=== PATIENT | female | born 1985 | race Caucasian/White ===

== ENCOUNTER 2017-10-20 11:12 | Outpatient (CLI) | payer OTHER ==
[2017-10-20] MEDS: LR 1,000 ML IV ×2 (13:10→13:20)
== END 2017-10-20 14:10 | disposition home or self-care (01) ==
LOC: M LDO 11:12
DX: O26.893 Other specified pregnancy related conditions, third trimester (principal); Z3A.39 39 weeks gestation of pregnancy; E86.0 Dehydration; O99.213 Obesity complicating pregnancy, third trimester; E66.9 Obesity, unspecified; M79.7 Fibromyalgia; N80.9 Endometriosis, unspecified; O99.283 Endocrine, nutritional and metabolic diseases complicating pregnancy, third trimester
CPT/HCPCS: 76815

== ENCOUNTER 2017-10-27 11:07 | Inpatient (IN) | payer OTHER ==
[2017-10-27 13:22] LABS: HEMATOCRIT 38.8 % (36.0-47.0); MEAN CORPUSCULAR HEMOGLOBIN 27.3 pg (27.0-33.0); MEAN CORPUSCULAR HGB CONC 33.5 g/dl (32.0-36.5); MEAN CORPUSCULAR VOLUME 81.5 fl (80.0-96.0); PLATELET COUNT, AUTOMATED 304 10^3/uL (150-450); RED BLOOD COUNT 4.76 10^6/uL (4.00-5.40); RED CELL DISTRIBUTION WIDTH 15.4 % (11.5-14.5); WHITE BLOOD COUNT 13.7 10^3/uL (4.0-10.0)
[2017-10-27] MEDS: LR 1,000 ML IV ×3 (13:56→18:23)
[2017-10-27] MEDS: METOCLOPRAMIDE INJ 10MG/2ML VIAL (J2765) IV (14:29)
[2017-10-27] MEDS ORDERED: ONDANSETRON 4MG/2ML VIAL (J2405) As Ordered (15:21)
[2017-10-27] MEDS ORDERED: OXYTOCIN INJ 10 UNITS/ML VIAL (J2590) As Ordered (15:21)
[2017-10-27] MEDS ORDERED: MORPHINE PRES-FREE INJ 10 MG/10 ML VIAL (J2274) As Ordered (15:22)
[2017-10-27] MEDS: BICITRA 30ML SOLN UDC PO (15:26)
[2017-10-27] MEDS ORDERED: ePHEDrine SULFATE 25 MG/5 ML(5MG/ML) SYRINGE As Ordered (16:05)
[2017-10-27] MEDS ORDERED: PHENYLephrine HCL 500 MCG/5 ML (100MCG/ML) SYRINGE (J2370) As Ordered ×2 (16:05→16:09)
[2017-10-27] MEDS ORDERED: KETOROLAC 30 MG/ML VIAL (J1885) IV (17:00)
[2017-10-27] MEDS ORDERED: fentaNYL 100 MCG/2 ML INJECTION (J3010) IV (17:00)
[2017-10-27] MEDS ORDERED: ONDANSETRON 4MG/2ML VIAL (J2405) IV (17:00)
[2017-10-27] MEDS ORDERED: LR 1,000 ML IV (17:00)
[2017-10-27] MEDS ORDERED: METOCLOPRAMIDE INJ 10MG/2ML VIAL (J2765) IV (17:00)
[2017-10-27] MEDS: KETOROLAC 30 MG/ML VIAL (J1885) IV ×2 (17:00→23:29)
[2017-10-27] MEDS ORDERED: MEPERIDINE INJ 25 MG/ML VIAL (J2175) IV (17:00)
[2017-10-27 17:18] LABS: HBSAG L&D NEGATIVE (NEGATIVE)
[2017-10-27] MEDS: RHOGAM 300 MCG (1500 IU) INJ (J2790) IM (18:40)
[2017-10-27] MEDS: MEASLES,MUMPS,RUBELLA VACCINE INJ (MMR-II) (90707) SC (18:41)
[2017-10-27] MEDS: DOCUSATE SODIUM 100 MG CAP PO (21:43)
[2017-10-27] MEDS: PERCOCET 5MG/325MG TAB PO (21:45)
[2017-10-28] MEDS: LR 1,000 ML IV (00:49)
[2017-10-28] MEDS: PERCOCET 5MG/325MG TAB PO ×4 (03:18→20:20)
[2017-10-28] MEDS: KETOROLAC 30 MG/ML VIAL (J1885) IV ×2 (05:04→12:04)
[2017-10-28 07:07] LABS: HEMATOCRIT 30.4 % (36.0-47.0); MEAN CORPUSCULAR HEMOGLOBIN 27.2 pg (27.0-33.0); MEAN CORPUSCULAR HGB CONC 33.2 g/dl (32.0-36.5); MEAN CORPUSCULAR VOLUME 81.7 fl (80.0-96.0); PLATELET COUNT, AUTOMATED 229 10^3/uL (150-450); RED BLOOD COUNT 3.72 10^6/uL (4.00-5.40); RED CELL DISTRIBUTION WIDTH 15.6 % (11.5-14.5)
[2017-10-28 07:18] LABS: HEMOGLOBIN 10.1 g/dl (12.0-16.0)
[2017-10-28] MEDS: PRENATAL VITAMINS CHEWABLE TABLET PO (07:31)
[2017-10-28] MEDS: DOCUSATE SODIUM 100 MG CAP PO ×2 (07:31→19:33)
[2017-10-28] MEDS: IBUPROFEN 800 MG TAB PO (19:34)
[2017-10-29] MEDS: PERCOCET 5MG/325MG TAB PO ×3 (00:21→10:11)
[2017-10-29] MEDS: IBUPROFEN 800 MG TAB PO ×2 (03:00→10:11)
[2017-10-29] MEDS: PRENATAL VITAMINS CHEWABLE TABLET PO (08:06)
[2017-10-29] MEDS: DOCUSATE SODIUM 100 MG CAP PO (08:06)
== END 2017-10-29 12:40 | disposition home or self-care (01) | DRG 766 ==
LOC: M LDI 11:07 → M OBS 18:07
PROVIDERS: Obstetrics & Gynecology
PROC: 10D00Z1 Extraction of Products of Conception, Low, Open Approach (ICD-10-PCS; principal; 2017-10-27 15:43)
DX: O41.03X0 Oligohydramnios, third trimester, not applicable or unspecified (principal); Z37.0 Single live birth; O33.3XX0 Maternal care for disproportion due to outlet contraction of pelvis, not applicable or unspecified; Z3A.40 40 weeks gestation of pregnancy; O48.0 Post-term pregnancy

== ENCOUNTER 2018-09-24 16:50 | Emergency (ER) | payer OTHER ==
[~2018-09-24 16:50] MED LIST: ADVI200C5 PO; BENA25CA4 PO; COLA100C5 PO; MAPA500T2 PO; OXYC1TAB23 PO; PRENTAB9 PO; TUMS500C PO
[2018-09-24] MEDS ORDERED: NS 1,000 ML IV ONE (18:00)
[2018-09-24 18:07] LABS: HEMATOCRIT 37.3 % (36.0-47.0); HEMOGLOBIN 12.2 g/dl (12.0-15.5); MEAN CORPUSCULAR HEMOGLOBIN 27.4 pg (27.0-33.0); MEAN CORPUSCULAR HGB CONC 32.7 g/dl (32.0-36.5); MEAN CORPUSCULAR VOLUME 83.8 fl (80.0-96.0); PLATELET COUNT, AUTOMATED 345 10^3/uL (150-450); RED BLOOD COUNT 4.45 10^6/uL (4.00-5.40); WHITE BLOOD COUNT 10.1 10^3/uL (4.0-10.0)
[2018-09-24 18:25] LABS: BLOOD UREA NITROGEN 12 MG/DL (7-18); CALCIUM LEVEL 8.4 MG/DL (8.5-10.1); CARBON DIOXIDE LEVEL 27 MEQ/L (21-32); CHLORIDE LEVEL 107 MEQ/L (98-107); CREATININE FOR GFR 0.81 MG/DL (0.55-1.30); GLOMERULAR FILTRATION RATE > 60.0 (>60); GLUCOSE, FASTING 147 MG/DL (70-100); POTASSIUM SERUM 3.7 MEQ/L (3.5-5.1); SODIUM LEVEL 141 MEQ/L (136-145)
[2018-09-24 19:21] VITALS: BP 117/56
--- NOTE | 2018-09-25 07:25 | ECGEPIP ---
Stationary ECG Study [facility] - ED Test Date: 2018-09-24 Pat Name: KIMMY MAC Department: Room: - Gender: F [employer]ing Machine Set Up Operator: srinivas : 1985 Requested By: Moira Cowan Order Number: [id number] Reading MD: Moira Cowan Measurements Intervals [place] Rate: 76 P: 32 CO: 156 QRS: 39 QRSD: 94 T: 21 QT: 351 QTc: 395 Interpretive Statements SINUS RHYTHM NO PRIOR FOR COMPARISON Electronically Signed On 09-25-2018 7:24:41 EST by Moira Cowan
== END 2018-09-24 19:44 | disposition home or self-care (01) ==
LOC: M ED 16:50
DX: E86.0 Dehydration (principal); M79.7 Fibromyalgia

== ENCOUNTER 2018-12-26 19:44 | Emergency (ER) | payer OTHER ==
[~2018-12-26] VITALS: Ht 170.2 cm; Wt 97.7 kg
[2018-12-26] MEDS ORDERED: traMADol 50 MG TAB PO ONE (22:00)
[2018-12-26 22:59] VITALS: BP 138/92
[2018-12-26 23:09] LABS: INFLUENZA A AMPLIFICATION NEGATIVE (NEGATIVE); INFLUENZA B AMPLIFICATION NEGATIVE (NEGATIVE)
== END 2018-12-26 23:24 | disposition home or self-care (01) ==
LOC: M ED 19:44
DX: J06.9 Acute upper respiratory infection, unspecified (principal); M79.7 Fibromyalgia; Z79.899 Other long term (current) drug therapy

== ENCOUNTER → 2019-03-27 | Outpatient (CLI) | payer OTHER ==
[2019-03-27 15:50] LABS: APPEARANCE, URINE CLEAR (CLEAR); BACTERIA, URINE AUTO NEGATIVE (NEGATIVE); BILIRUBIN, URINE AUTO NEGATIVE (NEGATIVE); BLOOD, URINE BLOOD 1+ (NEGATIVE); COLOR, URINE YELLOW (YELLOW); GLUCOSE, URINE (UA) AUTO NEGATIVE (NEGATIVE); KETONE, URINE AUTO NEGATIVE (NEGATIVE); LEUKOCYTE ESTERASE, URINE AUTO NEGATIVE (NEGATIVE); NITRITE, URINE AUTO NEGATIVE (NEGATIVE); PROTEIN, URINE AUTO NEGATIVE (NEGATIVE); RBC, URINE AUTO 0 /HPF (0-3); SQUAMOUS EPITHELIAL CELL UR AU 0 /HPF (0-6); UROBILINOGEN, URINE AUTO 0.2 mg/dL (0.0-2.0); WBC, URINE AUTO 0 /HPF (0-3)
[2019-03-27 16:11] LABS: CREATININE,RANDOM URINE 46.6 MG/DL; TOTAL PROTEIN,RANDOM URINE 7.6 MG/DL (0.0-12.0)
[2019-03-27 16:13] LABS: COMPLEMENT C3 141 MG/DL (90-180); COMPLEMENT C4 31 MG/DL (10-40)
[2019-03-31 15:47] LABS: ANA (HEP2) Positive (.); ANTI DS-DNA AB <1:10 titer (.); RNP ANTIBODY < 0.2 AI (0.0-0.9); SMITHS ANTIBODY < 0.2 AI (0.0-0.9); SSA SJOGRENS A <0.2 AI (0.0-0.9); SSB SJOGRENS B <0.2 AI (0.0-0.9)
== END ==
LOC: M LAB 15:08
PROVIDERS: ATTEND Internal Medicine Rheumatology
DX: R76.8 Other specified abnormal immunological findings in serum (principal)
CPT/HCPCS: 81001; 82570; 84156; 86038; 86160; 86225; 86235; 86255; G0463

== ENCOUNTER → 2020-01-19 | Outpatient (CLI) | payer OTHER ==
[2020-01-19 06:44] LABS: BASO % 0.5 % (0.0-1.0); EOS # 0.5 10^3/uL (0.0-0.5); EOS % 6.3 % (0.0-3.0); HEMOGLOBIN 13.1 g/dl (12.0-15.5); LYMPH # 2.1 10^3/uL (1.5-5.0); LYMPH % 27.2 % (24.0-44.0); MEAN CORPUSCULAR HEMOGLOBIN 28.7 pg (27.0-33.0); MEAN CORPUSCULAR HGB CONC 33.6 g/dl (32.0-36.5); MEAN CORPUSCULAR VOLUME 85.5 fl (80.0-96.0); MONO # 0.6 10^3/uL (0.0-0.8); MONO % 7.5 % (0.0-5.0); NEUTROPHILS # 4.5 10^3/uL (1.5-8.5); NEUTROPHILS % 58.1 % (36.0-66.0); PLATELET COUNT, AUTOMATED 366 10^3/uL (150-450); RED BLOOD COUNT 4.56 10^6/uL (4.00-5.40); WHITE BLOOD COUNT 7.8 10^3/uL (4.0-10.0)
[2020-01-19 07:27] LABS: ALBUMIN 3.7 GM/DL (3.2-5.2); ALT/SGPT 27 U/L (12-78); BILIRUBIN,DIRECT 0.2 MG/DL (0.0-0.2); BILIRUBIN,TOTAL 0.9 MG/DL (0.2-1.0); FREE T4 0.97 NG/DL (0.76-1.46); IRON (FE) 115 UG/DL (50-170); PERCENT SATURATION 33.8 % (13.2-45.0); TOTAL IRON BINDING CAPACITY 340 UG/DL (250-450); TOTAL PROTEIN 7.1 GM/DL (6.4-8.2)
[2020-01-19 09:53] LABS: H PYLORI QUALITATIVE IgG NEGATIVE (NEGATIVE)
[2020-01-23 06:46] LABS: IGASUB2 187.5 mg/dL (73.2-301.2); IgA SERUM (part of Subclasses) 243 mg/dL (87-352); TISSUE TRANSGLUTAMINASE IgA <2 U/mL (0-3); UNITSIGA FOR GLIADIN IGA 4 units (0-19); UNITSIGG FOR GLIADIN IGG 2 units (0-19)
== END ==
LOC: M LAB 06:10
PROVIDERS: ATTEND Internal Medicine Gastroenterology
DX: R10.13 Epigastric pain (principal)

== ENCOUNTER → 2020-01-24 | Outpatient (CLI) | payer OTHER ==
[~2020-01-24] MED LIST changes: +ALL10TAB29; +AMIT25TA; +DICY20TA11; +MELO15TA28; +OMEP-218
--- NOTE | 2020-01-25 03:25 | REP ---
Clinical: Thyroid nodule. Technique: Real time alicea scale and color evaluation using linear high frequency and curved array transducers. Findings: Right lobe measures 4.8 x 1.2 x 1.9 cm and includes a 9 x 8 x 8 mm indeterminate isoechoic relatively homogeneous solid nodule in the lower pole. Left lobe measures 3.7 x 1.2 x 0.9 cm. The isthmus includes 8-0.4 x 1.2 x 1.9 cm indeterminate isoechoic homogeneous solid vascular nodule. Impression: Two indeterminate solid nodules as described above.
== END ==
LOC: M PLAIMG 09:48
PROVIDERS: ATTEND Internal Medicine Gastroenterology
DX: E04.1 Nontoxic single thyroid nodule (principal)

== ENCOUNTER 2020-02-01 14:40 | Emergency (ER) | payer OTHER ==
[~2020-02-01] VITALS: Ht 160 cm; Wt 90.4 kg
[~2020-02-01 14:40] MED LIST changes: -ALL10TAB29; -AMIT25TA; -DICY20TA11; -MELO15TA28; -OMEP-218
[2020-02-01] MEDS ORDERED: OMEP-218 (14:50)
[2020-02-01] MEDS ORDERED: DICY20TA11 (14:50)
[2020-02-01] MEDS ORDERED: ALL10TAB29 (14:50)
[2020-02-01] MEDS ORDERED: AMIT25TA (14:50)
[2020-02-01] MEDS ORDERED: MELO15TA28 (14:50)
[2020-02-01 15:25] LABS: BASO % 0.4 % (0.0-1.0); EOS # 0.3 10^3/uL (0.0-0.5); EOS % 4.1 % (0.0-3.0); HEMOGLOBIN 12.5 g/dl (12.0-15.5); LYMPH # 1.8 10^3/uL (1.5-5.0); LYMPH % 21.6 % (24.0-44.0); MEAN CORPUSCULAR HEMOGLOBIN 28.5 pg (27.0-33.0); MEAN CORPUSCULAR HGB CONC 33.8 g/dl (32.0-36.5); MEAN CORPUSCULAR VOLUME 84.5 fl (80.0-96.0); MONO # 0.7 10^3/uL (0.0-0.8); NEUTROPHILS # 5.4 10^3/uL (1.5-8.5); NEUTROPHILS % 65.5 % (36.0-66.0); PLATELET COUNT, AUTOMATED 354 10^3/uL (150-450); RED BLOOD COUNT 4.38 10^6/uL (4.00-5.40); WHITE BLOOD COUNT 8.2 10^3/uL (4.0-10.0)
[2020-02-01 15:46] LABS: ALBUMIN 3.8 GM/DL (3.2-5.2); BILIRUBIN,DIRECT 0.1 MG/DL (0.0-0.2); BILIRUBIN,TOTAL 0.4 MG/DL (0.2-1.0); TOTAL PROTEIN 7.1 GM/DL (6.4-8.2)
--- NOTE | 2020-02-01 17:07 | REP ---
ULTRASOUND ABDOMINAL AORTA: Real-time sonographic evaluation of abdominal aorta performed. There is no sonographic evidence of abdominal aortic aneurysm. Maximum AP diameter of the abdominal aorta proximally is 1.5 cm, at the level of the renal arteries 2.2 cm, mid aspect 1.8 cm, and distally 1.4 cm. Common iliac arteries are normal in caliber, slightly less than 1 cm in maximum diameter. IMPRESSION: No sonographic evidence of abdominal aortic aneurysm. Electronically Signed by Huey Clement MD 02/06/2020 06:16 P
[2020-02-01 17:32] VITALS: BP 136/84
== END 2020-02-01 17:34 | disposition home or self-care (01) ==
LOC: M ED 14:40
DX: R10.13 Epigastric pain (principal); K31.84 Gastroparesis; M79.7 Fibromyalgia; M54.9 Dorsalgia, unspecified

== ENCOUNTER → 2020-02-13 | Outpatient (REF) | payer OTHER ==
[~2020-02-13] MED LIST changes: +ALL10TAB29; +AMIT25TA; +DICY20TA11; +MELO15TA28; +OMEP-218
== END ==
LOC: M LAB REF 14:41
PROVIDERS: ATTEND Internal Medicine Endocrinology, Diabetes & Metabolism
DX: E04.1 Nontoxic single thyroid nodule (principal)

== ENCOUNTER → 2020-05-01 | Outpatient (CLI) | payer OTHER ==
[~2020-05-01] MED LIST changes: -ALL10TAB29; +CETI-24
[2020-05-01 08:24] LABS: FREE T4 0.92 NG/DL (0.76-1.46); THYROID STIMULATING HORMONE 1.66 uIU/ML (0.358-3.740)
[2020-05-01 12:53] LABS: THYROID PEROXIDASE ANTIBODY 38.6 U/ML (<60.0)
== END ==
LOC: M LAB 06:28
PROVIDERS: ATTEND Nurse Practitioner Family
DX: E04.2 Nontoxic multinodular goiter (principal)